=== PATIENT | female | born 1960 | race Caucasian/White ===

== ENCOUNTER 2021-07-03 17:42 | Emergency (ER) | payer BC, OTHER ==
[~2021-07-03] VITALS: Ht 162.6 cm; Wt 130.6 kg
[~2021-07-03 17:42] MED LIST: FISH OIL500 MG PO; IMITREX50 MG PO; LASIX20 MG PO; MELATONIN 3 MG1 EACH; MULTI-VITAMIN1 EACH; VITAMIN D-32000 UNIT
[2021-07-03 18:15] LABS: BASOPHILS % 0.2 % (0.0-1.0); EOSINOPHILS # (AUTO) 0.2 (0.0-0.4); EOSINOPHILS % 1.8 % (0.0-6.0); HEMATOCRIT 45.7 % (34.2-44.1); HEMOGLOBIN 14.4 g/dL (12.0-16.0); LYMPHOCYTES # (AUTO) 4.9 (1.0-3.2); LYMPHOCYTES % 39.2 % (18.0-39.1); MEAN CORPUSCULAR HEMOGLOBIN 28.1 pg (28-32); MEAN CORPUSCULAR HGB CONC 31.5 g/dL (31-35); MEAN CORPUSCULAR VOLUME 89.1 fL (81-99); MONOCYTES # (AUTO) 0.7 (0.2-0.8); MONOCYTES % 5.7 % (4.4-11.3); NEUTROPHILS # (AUTO) 6.5 (2.1-6.9); NEUTROPHILS % 52.8 % (38.7-80.0); PLATELET COUNT 337 x10e3/uL (140-360); RED BLOOD COUNT 5.13 x10e6/uL (3.6-5.1); RED CELL DISTRIBUTION WIDTH 12.8 % (11.7-14.4)
[2021-07-03 18:31] LABS: INR 0.86; PROTHROMBIN TIME 12.3 seconds (11.9-14.5)
[2021-07-03 18:32] LABS: PARTIAL THROMBOPLASTIN TIME 33.7 seconds (23.8-35.5)
[2021-07-03 18:38] LABS: ANION GAP 15.9 mmol/L (8-16); CREATININE, SERUM 0.71 mg/dL (0.57-1.11); POTASSIUM 3.9 mmol/L (3.5-5.1)
[2021-07-03 19:19] VITALS: BP 115/84
[2021-07-03] MEDS ORDERED: RIVAROXABAN 15 MG TABLET PO ONE (19:30)
== END 2021-07-03 19:42 | disposition home or self-care (01) ==
LOC: ER 17:56
DX: M79.604 Pain in right leg (principal); I80.11 Phlebitis and thrombophlebitis of right femoral vein; B19.10 Unspecified viral hepatitis B without hepatic coma
CPT/HCPCS: 36415; 80053; 85025; 85610; 85730; 93971; 99284